=== PATIENT | female | born 1985 | race Two or more races ===

== ENCOUNTER 2025-01-06 09:32 | Emergency (ER) | payer MEDICAID ==
[~2025-01-06] VITALS: Ht 160 cm; Wt 66.2 kg
[2025-01-06 09:41] VITALS: TEMP 97.9
[2025-01-06] MEDS ORDERED: NAPR-1164 PO (11:17)
[2025-01-06] MEDS ORDERED: KETOROLAC TROMETHAMINE 15 MG/ML VIAL ONE (11:21)
[2025-01-06] MEDS: KETOROLAC TROMETHAMINE 15 MG/ML VIAL IV ONE (11:34)
[2025-01-06] MEDS: KETOROLAC TROMETHAMINE 15 MG/ML VIAL IM ONE (11:36)
[2025-01-06 12:25] VITALS: BP 124/80; O2SAT 99
== END 2025-01-06 12:26 | disposition home or self-care (01) ==
LOC: ER 09:43
DX: S42.032A Displaced fracture of lateral end of left clavicle, initial encounter for closed fracture (principal); Z60.2 Problems related to living alone; V89.2XXA Person injured in unspecified motor-vehicle accident, traffic, initial encounter; Y93.89 Activity, other specified; Y92.89 Other specified places as the place of occurrence of the external cause; Y99.8 Other external cause status
CPT/HCPCS: 99284; 71045; 96372; 73000; 73030; J1885